=== PATIENT | male | born 1940 | race African-American/Black ===

== ENCOUNTER 2020-11-18 15:33 | Emergency (ER) | payer MEDICARE, BC ==
[~2020-11-18] VITALS: Ht 185.4 cm; Wt 77.1 kg
[2020-11-18] MEDS ORDERED: IV NORMAL SALINE 500 ML BAG IV ONE (16:00)
[2020-11-18] MEDS ORDERED: ATOR20TA PO (16:36)
[2020-11-18] MEDS ORDERED: HYDR25TA4 PO (16:36)
[2020-11-18] MEDS ORDERED: BRIM5DRO2 OP (16:36)
[2020-11-18] MEDS ORDERED: DULO30CA2 PO (16:36)
[2020-11-18] MEDS ORDERED: ASPI81TA31 PO (16:36)
[2020-11-18] MEDS ORDERED: TERB250T52 PO (16:36)
[2020-11-18] MEDS ORDERED: DONE10TA44 PO (16:36)
[2020-11-18] MEDS ORDERED: PRAV80TA21 PO (16:36)
[2020-11-18] MEDS ORDERED: LOSA1TAB42 PO (16:36)
[2020-11-18] MEDS ORDERED: MEMA10TA PO (16:36)
[2020-11-18] MEDS ORDERED: CYAN-51 PO (16:36)
[2020-11-18] MEDS ORDERED: CYAN1TAB17 PO (16:36)
[2020-11-18] MEDS ORDERED: MELO-107 PO (16:36)
[2020-11-18] MEDS ORDERED: POTA10CA43 PO (16:36)
[2020-11-18 17:39] LABS: BASOPHILS # (AUTO) 0.1 K/uL (0.0-8.0); BASOPHILS % (AUTO) 0.5 % (0.0-2.0); EOSINOPHILS # (AUTO) 0.2 K/uL (0.0-0.7); EOSINOPHILS % (AUTO) 1.6 % (0.0-7.0); HEMATOCRIT 35.9 % (36.7-47.1); HEMOGLOBIN 11.5 g/dL (12.5-16.3); LYMPHOCYTES # (AUTO) 1.6 K/uL (20.0-40.0); LYMPHOCYTES % (AUTO) 13.6 % (20.5-51.5); MEAN CORPUSCULAR HEMOGLOBIN 28.4 uug (23.8-33.4); MEAN CORPUSCULAR HGB CONC 32 g/dL (32.5-36.3); MEAN CORPUSCULAR VOLUME 88.8 fL (73.0-96.2); MONOCYTES # (AUTO) 0.6 K/uL (2.0-10.0); MONOCYTES % (AUTO) 5.3 % (0.0-11.0); NEUTROPHILS # (AUTO) 9.1 K/uL (1.8-8.9); PLATELET COUNT (AUTO) 209 K/uL (152-348); RED BLOOD CELL COUNT(AUTO) 4.04 MIL/uL (4.06-5.63); WHITE BLOOD COUNT (AUTO) 11.5 K/uL (3.6-10.2)
[2020-11-18 17:49] LABS: CARBON DIOXIDE 25 mmol/L (21-32); CHLORIDE 108 mmol/L (98-107); CREATININE 2.1 mg/dL (0.6-1.3); GLUCOSE 191 mg/dL (74-106); POTASSIUM 3.6 mmol/L (3.5-5.1); UREA NITROGEN, BLOOD 21 mg/dL (7-18)
[2020-11-18 17:55] LABS: ALANINE AMINOTRANSFERASE 27 U/L (16-63); ALKALINE PHOSPHATASE 121 U/L (50-136); ASPARTATE AMINOTRANSFERASE 18 U/L (15-37); BILIRUBIN,DIRECT 0.1 mg/dL (0.0-0.2); BILIRUBIN,TOTAL 0.3 mg/dL (0.2-1.0); TOTAL PROTEIN, SERUM 6.3 g/dL (6.4-8.2)
--- NOTE | 2020-11-18 18:01 | NUR ---
Pandemic disaster charting with potential for "out of patient safety ratio" staffing in ER: Administrative Technician assumes care- patient is awake, pleasantly confuse, directable, for discharge to home, waiting for his ride@this time.
--- NOTE | 2020-11-18 18:38 | NUR ---
Patient discharged to home in stable condition & steady gait. Written and verbal after care instructions given to patient's spouse. Patient's verbalizes understanding & compliance of instructions. Stressed follow up or return to ER for worsening s/s. Copies of all the tests' results were provided to patient's family.
== END 2020-11-18 18:38 | disposition home or self-care (01) ==
LOC: ER 15:33
DX: R55 Syncope and collapse (principal); G30.9 Alzheimer's disease, unspecified; F02.80 Dementia in other diseases classified elsewhere, unspecified severity, without behavioral disturbance, psychotic disturbance, mood disturbance, and anxiety; N28.9 Disorder of kidney and ureter, unspecified; Z79.899 Other long term (current) drug therapy; Z20.822 Contact with and (suspected) exposure to COVID-19; Z79.82 Long term (current) use of aspirin; G31.9 Degenerative disease of nervous system, unspecified; I67.2 Cerebral atherosclerosis
CPT/HCPCS: 36415; 70030-TC; 70450; 71045; 85025; 85730; 93005; A4663